=== PATIENT | female | born 1980 | race Caucasian/White ===

== ENCOUNTER 2022-02-01 09:20 | Emergency (ER) | payer OTHER, MEDICAID, SELFPAY ==
[2022-02-01 09:24] VITALS: BP 142/87; PULSE 100; RESP 18; TEMP 36.6; O2SAT 99; BMI 22.8
[2022-02-01 10:02] LABS: Add Manual Diff / Slide Review NO; Basophils Absolute Auto 0 /uL (0-100); Basophils Percent Auto 0.8 % (0-2); Eosinophils Absolute Auto 100 /uL (0-450); Hematocrit 42.5 % (36-46); Hemoglobin 15.2 g/dL (12.0-16.0); Lymphocytes Absolute Auto 1900 /uL (1100-4500); Lymphocytes Percent Auto 43.5 % (25-40); Mean Corpuscular HGB Conc 35.7 % (30-36); Mean Corpuscular Hemoglobin 36.1 PG (26-34); Mean Corpuscular Volume 101.3 fL (80-100); Monocytes Absolute Auto 300 /uL (0-900); Monocytes Percent Auto 6.5 % (3-14); Neutrophils Absolute Auto 2100 /uL (1500-7000); Neutrophils Percent Auto 47.2 % (50-75); Platelet Count 255 X10^3/uL (150-400); Red Cell Distribution Width 12.5 % (11.6-14.8); White Blood Cell Count 4.4 X10^3/uL (4.5-11.0)
[2022-02-01 10:15] LABS: Alanine Aminotransferase 94 IU/L (<35); Albumin Globulin Ratio 1.3 (1.0-2.8); Alkaline Phosphatase 104 U/L (38-126); Aspartate Aminotransferase 173 IU/L (14-36); BUN Creatinine Ratio 10.4 (6-22); Bilirubin Total 0.8 mg/dL (0.2-1.3); Blood Urea Nitrogen 8 mg/dL (7-17); Calcium 9.1 mg/dL (8.4-10.2); Carbon Dioxide 24 mmol/L (22-32); Chloride 105 mmol/L (98-107); Estimated Glomerular Filt Rate > 60 mL/min (>60); Globulin 3.8 g/dL (1.7-4.1); Glucose 90 mg/dL (70-100); HEMOLYSIS < 15 (0-50); Potassium 3.9 mmol/L (3.4-5.1); Sodium 142 mmol/L (137-145); Total Protein 8.8 g/dL (6.3-8.2)
[2022-02-01 10:23] LABS: Acetaminophen < 10 ug/mL (10-30); Ethanol (ETOH) 161 mg/dL; Salicylate < 1.0 mg/dL (<20)
--- NOTE | 2022-02-01 10:23 | ED.PSYCH ---
HPI - Psych General Chief Complaint: Psychiatric Symptoms Stated Complaint: SI Time Seen by Provider: 02/01/22 09:52 Source: patient Mode of arrival: Ambulatory History of Present Illness HPI Narrative: Patient is a 41-year-old female. Is a self-described alcoholic. Drinks every day all day long and has been doing this for very long time. Has never tried to quit. She also has been taking medications such as Adderall on benzodiazepines and other medicines that are not prescribed to her. She states she takes these to ?maintain ?she states she has to take them in order to stay awake during the day and also to go to sleep at night. She is also having thoughts of suicide. She has tried to hurt herself in the past. She has tried overdose on medicine and she also states she has tried to hang herself in the past but obviously nothing has been successful. She states that she is here voluntarily. She is here with her mom. She states that she ?needs a change ?she did not give a specific reason as to what made her think this but she is the 1 the contacted her mom to bring her in. Related Data Allergies Allergy/AdvReac Type Severity Reaction Status Date / Time No Known Drug Allergies Allergy Verified 02/01/22 09:24 Review of Systems Constitutional Constitutional: Denies fever(s) and Denies headache(s) ENT Ears, Nose, Mouth, and Throat: Denies headache(s) Cardiovascular Cardiovascular: Denies chest pain and Denies dyspnea Respiratory Respiratory: Denies dyspnea Gastrointestinal Gastrointestinal: Denies abdominal pain and Reports nausea Genitourinary Genitourinary: Denies dysuria Integumentary/Breasts Skin/Breast: Reports system reviewed and no additional complaints, except as documented Neurologic Neurologic: Reports behavioral changes and Denies headache(s) Psychiatric Psychiatric: Reports behavioral changes, Reports depression and Reports hopelessness Hematologic/Lymphatic On Anticoagulants: No Patient History Medical History Alcohol abuse Social History Smoking Status: Current every day smoker Smoking Status: Current every day smoker alcohol intake frequency: 3 or more drinks per day Alcohol type: hard liquor Substance Use Type: marijuana, crack/cocaine, sedatives and prescription drug Exam Initial Vital Signs Initial Vital Signs: Vital Signs Temperature 97.8 F 02/01/22 09:24 Pulse Rate 100 H 02/01/22 09:24 Respiratory Rate 18 02/01/22 09:24 Blood Pressure 142/87 H 02/01/22 09:24 Pulse Oximetry 99 02/01/22 09:24 HENMT Head: normal to inspection and normocephalic Resp Effort & Inspection: normal respiratory effort Auscultation: clear to auscultation bilaterally Cardio Rate: regular rate Rhythm: regular rhythm GI Inspection: normal to inspection Palpation: soft, No firm and No tender Skin General: no rashes or lesions noted Neuro General: patient alert, patient awake, patient oriented x3 and moves all extremities Cognition: normal cognition Speech: speech normal Gait: normal gait Extrem General: normal to inspection Psych Other: Flat affect, sad, does endorse suicidal ideation Course Orders Ordered: ED Orders 02/01/22 09:39 Consult to CUSTOMER ASSISTANCE REPRESENTATIVE - [employer] Stat 02/01/22 09:50 Acetaminophen Stat Complete Blood Count AUTO DIFF Stat Comprehensive Metabolic Panel Stat Ethanol (ETOH) Stat Free T4, Direct Thyroxine Stat Salicylate Stat Thyroid Stimulating Hormone Stat 02/01/22 10:20 COVID19 -Nasal RAPID/Pre-Proc Stat 02/01/22 10:27 EKG-12 Lead Stat 02/01/22 11:04 Test Urine Stat Urinalysis and Microscopic Stat Urine Culture Stat Urine Drug Screen, Rapid Stat 02/01/22 13:00 ETOH [Ethanol (ETOH)] Stat Discontinued Medications Acetaminophen (Acetaminophen 325 Mg Tablet) 650 mg PO NOW ONE Stop: 02/01/22 13:09 Last Admin: 02/01/22 13:13 Dose: 650 mg Documented by: OUMAR Nicotine (Nicotine 21 Mg Patch) 21 mg TOP NOW ONE Stop: 02/01/22 14:36 Last Admin: 02/01/22 14:41 Dose: 21 mg Documented by: VENKATESH Ondansetron HCl (Ondansetron 4 Mg Odt) 4 mg SL NOW ONE Stop: 02/01/22 15:46 Last Admin: 02/01/22 15:53 Dose: 4 mg Documented by: OUMAR Phenobarbital (Phenobarbital 65 Mg/Ml Vial) 260 mg IV NOW ONE Stop: 02/01/22 16:52 Last Admin: 02/01/22 17:03 Dose: 260 mg Documented by: JULIANO Vital Signs Vital signs: Vital Signs - 8 hr 02/01/22 16:45 Temperature 97.1 F L Pulse Rate 96 H Respiratory Rate 16 Blood Pressure 134/89 Pulse Oximetry 98 MDM - Psych Lab Data Result diagrams: 02/01/22 09:50 02/01/22 09:50 Labs: Lab Results 02/01/22 02/01/22 02/01/22 Range/Units 09:50 09:50 09:50 WBC 4.4 L (4.5-11.0) X10^3/uL RBC 4.20 (4.0-5.2) X10^6/uL Hgb 15.2 (12.0-16.0) g/dL Hct 42.5 (36-46) % MCV 101.3 H (80-100) fL MCH 36.1 H (26-34) PG MCHC 35.7 (30-36) % RDW 12.5 (11.6-14.8) % Plt Count 255 (150-400) X10^3/uL Neut % (Auto) 47.2 L (50-75) % Lymph % (Auto) 43.5 H (25-40) % [place] % (Auto) 6.5 (3-14) % Eos % (Auto) 2.0 (2-4) % Baso % (Auto) 0.8 (0-2) % Neut # (Auto) 2100 (7211-3696) /uL Lymph # (Auto) 1900 (6961-7976) /uL [place] # (Auto) 300 (0-900) /uL Eos # (Auto) 100 (0-450) /uL Baso # (Auto) 0 (0-100) /uL Sodium 142 (137-145) mmol/L Potassium 3.9 (3.4-5.1) mmol/L Chloride 105 (98-107) mmol/L Carbon Dioxide 24 (22-32) mmol/L BUN 8 (7-17) mg/dL Creatinine 0.77 (0.52-1.04) mg/dL Estimated GFR > 60 (>60) mL/min BUN/Creatinine Ratio 10.4 (6-22) Glucose 90 (70-100) mg/dL Calcium 9.1 (8.4-10.2) mg/dL Total Bilirubin 0.8 (0.2-1.3) mg/dL AST 173 H (14-36) IU/L ALT 94 H (<35) IU/L Alkaline Phosphatase 104 (38-126) U/L Total Protein 8.8 H (6.3-8.2) g/dL Albumin 5.0 (3.5-5.0) g/dL Globulin 3.8 (1.7-4.1) g/dL Albumin/Globulin Ratio 1.3 (1.0-2.8) TSH 3.78 (0.47-4.68) uIU/mL Free T4 1.05 (0.78-2.19) ng/dL Urine Color Urine Appearance Urine pH (4.5-8.0) Ur Specific [place] (1.000-1.035) Urine Protein (Negative) Urine Glucose (UA) (Negative) g/dL Urine Ketones (NEGATIVE) Urine Occult Blood (Negative) Urine Nitrate (Negative) Urine Bilirubin (NEGATIVE) Urine Urobilinogen (0.2) E.U./dL Ur Leukocyte Esterase (NEGATIVE) Urine RBC (0-5/HPF) Urine WBC (0-5/HPF) Ur Squamous Epith Cells (0-5/HPF) Urine Bacteria (None) Ur Culture Indicated? Urine Test (Negative) Salicylates < 1.0 (<20) mg/dL U Opiates 300ng/mL cut (Negative) Ur Oxycodone Screen (Negative) Urine Methadone Screen (Negative) Acetaminophen < 10 (10-30) ug/mL Ur Barbiturates Screen (Negative) U Tricyclic Antidepress (Negative) Ur Phencyclidine Scrn (Negative) Ur Amphetamines Screen (Negative) U Methamphetamines Scrn (Negative) Ur MDMA Scrn (Ecstasy) (Negative) U Benzodiazepines Scrn (Negative) Urine Cocaine Screen (Negative) U Marijuana (THC) Screen (Negative) Ethyl Alcohol 161 H ( - 10) mg/dL SARS-CoV-2 (PCR) (Negative) 02/01/22 02/01/22 02/01/22 Range/Units 10:20 11:04 11:04 WBC (4.5-11.0) X10^3/uL RBC (4.0-5.2) X10^6/uL Hgb (12.0-16.0) g/dL Hct (36-46) % MCV (80-100) fL MCH (26-34) PG MCHC (30-36) % RDW (11.6-14.8) % Plt Count (150-400) X10^3/uL Neut % (Auto) (50-75) % Lymph % (Auto) (25-40) % [place] % (Auto) (3-14) % Eos % (Auto) (2-4) % Baso % (Auto) (0-2) % Neut # (Auto) (7628-7795) /uL Lymph # (Auto) (4089-9422) /uL [place] # (Auto) (0-900) /uL Eos # (Auto) (0-450) /uL Baso # (Auto) (0-100) /uL Sodium (137-145) mmol/L Potassium (3.4-5.1) mmol/L Chloride (98-107) mmol/L Carbon Dioxide (22-32) mmol/L BUN (7-17) mg/dL Creatinine (0.52-1.04) mg/dL Estimated GFR (>60) mL/min BUN/Creatinine Ratio (6-22) Glucose (70-100) mg/dL Calcium (8.4-10.2) mg/dL Total Bilirubin (0.2-1.3) mg/dL AST (14-36) IU/L ALT (<35) IU/L Alkaline Phosphatase (38-126) U/L Total Protein (6.3-8.2) g/dL Albumin (3.5-5.0) g/dL Globulin (1.7-4.1) g/dL Albumin/Globulin Ratio (1.0-2.8) TSH (0.47-4.68) uIU/mL Free T4 (0.78-2.19) ng/dL Urine Color Yellow Urine Appearance Clear Urine pH 5.5 (4.5-8.0) Ur Specific [place] 1.010 (1.000-1.035) Urine Protein Negative (Negative) Urine Glucose (UA) Negative (Negative) g/dL Urine Ketones Negative (NEGATIVE) Urine Occult Blood Trace-lysed (Negative) Urine Nitrate Negative (Negative) Urine Bilirubin Negative (NEGATIVE) Urine Urobilinogen 0.2 (0.2) E.U./dL Ur Leukocyte Esterase Negative (NEGATIVE) Urine RBC None seen (0-5/HPF) Urine WBC 0-1/hpf (0-5/HPF) Ur Squamous Epith Cells 1-5 /hpf (0-5/HPF) Urine Bacteria Moderate (10-30) H (None) Ur Culture Indicated? Specimen cultured Urine Test (Negative) Salicylates (<20) mg/dL U Opiates 300ng/mL cut Negative (Negative) Ur Oxycodone Screen Negative (Negative) Urine Methadone Screen Negative (Negative) Acetaminophen (10-30) ug/mL Ur Barbiturates Screen Negative (Negative) U Tricyclic Antidepress Negative (Negative) Ur Phencyclidine Scrn Negative (Negative) Ur Amphetamines Screen Positive H (Negative) U Methamphetamines Scrn Negative (Negative) Ur MDMA Scrn (Ecstasy) Negative (Negative) U Benzodiazepines Scrn Positive H (Negative) Urine Cocaine Screen Negative (Negative) U Marijuana (THC) Screen Positive H (Negative) Ethyl Alcohol ( - 10) mg/dL SARS-CoV-2 (PCR) Negative (Negative) 02/01/22 02/01/22 Range/Units 11:04 13:00 WBC (4.5-11.0) X10^3/uL RBC (4.0-5.2) X10^6/uL Hgb (12.0-16.0) g/dL Hct (36-46) % MCV (80-100) fL MCH (26-34) PG MCHC (30-36) % RDW (11.6-14.8) % Plt Count (150-400) X10^3/uL Neut % (Auto) (50-75) % Lymph % (Auto) (25-40) % [place] % (Auto) (3-14) % Eos % (Auto) (2-4) % Baso % (Auto) (0-2) % Neut # (Auto) (4383-1348) /uL Lymph # (Auto) (1437-3543) /uL [place] # (Auto) (0-900) /uL Eos # (Auto) (0-450) /uL Baso # (Auto) (0-100) /uL Sodium (137-145) mmol/L Potassium (3.4-5.1) mmol/L Chloride (98-107) mmol/L Carbon Dioxide (22-32) mmol/L BUN (7-17) mg/dL Creatinine (0.52-1.04) mg/dL Estimated GFR (>60) mL/min BUN/Creatinine Ratio (6-22) Glucose (70-100) mg/dL Calcium (8.4-10.2) mg/dL Total Bilirubin (0.2-1.3) mg/dL AST (14-36) IU/L ALT (<35) IU/L Alkaline Phosphatase (38-126) U/L Total Protein (6.3-8.2) g/dL Albumin (3.5-5.0) g/dL Globulin (1.7-4.1) g/dL Albumin/Globulin Ratio (1.0-2.8) TSH (0.47-4.68) uIU/mL Free T4 (0.78-2.19) ng/dL Urine Color Urine Appearance Urine pH (4.5-8.0) Ur Specific [place] (1.000-1.035) Urine Protein (Negative) Urine Glucose (UA) (Negative) g/dL Urine Ketones (NEGATIVE) Urine Occult Blood (Negative) Urine Nitrate (Negative) Urine Bilirubin (NEGATIVE) Urine Urobilinogen (0.2) E.U./dL Ur Leukocyte Esterase (NEGATIVE) Urine RBC (0-5/HPF) Urine WBC (0-5/HPF) Ur Squamous Epith Cells (0-5/HPF) Urine Bacteria (None) Ur Culture Indicated? Urine Test Negative (Negative) Salicylates (<20) mg/dL U Opiates 300ng/mL cut (Negative) Ur Oxycodone Screen (Negative) Urine Methadone Screen (Negative) Acetaminophen (10-30) ug/mL Ur Barbiturates Screen (Negative) U Tricyclic Antidepress (Negative) Ur Phencyclidine Scrn (Negative) Ur Amphetamines Screen (Negative) U Methamphetamines Scrn (Negative) Ur MDMA Scrn (Ecstasy) (Negative) U Benzodiazepines Scrn (Negative) Urine Cocaine Screen (Negative) U Marijuana (THC) Screen (Negative) Ethyl Alcohol 82 H ( - 10) mg/dL SARS-CoV-2 (PCR) (Negative) ECG Data Attestation: I personally reviewed and interpreted this ECG as follows: Interpretation: Sinus rhythm Ventricular rate is 77 Normal QRS Normal QTC No ST T wave changes MDM Narrative Medical decision making narrative: Patient is medically cleared. Labs reviewed. Patient is calm and stable although she did start to have a headache and some nausea and shaking. Was given Tylenol and also phenobarbital for what appears to be alcohol withdrawal with a CIWA score of 13. Was seen by social work. There either no beds available or patient was not a candidate did facilities given her dual diagnosis to include mental health issues and alcohol on also drug use. Patient is tolerating oral intake. Is in the room with her mother. Plan will be is to have the patient stay in the emergency department overnight for her safety. She would prefer to stay in the ER and will re-evaluate tomorrow about potential placement for patient. Care turned over to Dr. Lau to continue to observe overnight.
[2022-02-01 10:46] LABS: COVID19 -Nasal RAPID Negative (Negative)
[2022-02-01 10:50] LABS: Free T4, Direct Thyroxine 1.05 ng/dL (0.78-2.19)
[2022-02-01 11:04] LABS: Thyroid Stimulating Hormone 3.78 uIU/mL (0.47-4.68)
[2022-02-01 11:15] LABS: UR Morphine/Opiate cutoff 300 Negative (Negative); Ur Creatinine Normal (Normal); Ur Specific Gravity Normal (Normal); Urine Amphetamines Positive (Negative); Urine Barbiturates Negative (Negative); Urine Benzodiazepines Positive (Negative); Urine Cocaine Negative (Negative); Urine MDMA Negative (Negative); Urine Methadone Negative (Negative); Urine Methamphetamines Negative (Negative); Urine Oxycodone Negative (Negative); Urine Phencyclidine Negative (Negative); Urine Tetrahydrocannabinol Positive (Negative); Urine Tricyclic Antidepressant Negative (Negative); Urine pH Normal (Normal)
--- NOTE | 2022-02-01 12:28 | PC.NURSE ---
I introduced myself to the patient while her support person went to the bathroom. Patient is calm and when asking to see if she would like her table cleared off or brought anything to her, she said no but i could bring her vodka.
[2022-02-01] MEDS: ACETAMINOPHEN 325 MG TABLET 650 MG PO ×2 (13:13→21:50)
[2022-02-01 13:15] LABS: Appearance Urine UA CLEAR; Bilirubin Urine UA NEGATIVE (NEGATIVE); Color Urine UA YELLOW; Glucose Urine UA NEGATIVE (Negative); Ketones Urine UA NEGATIVE (NEGATIVE); Leukocyte Esterase Urine UA NEGATIVE (NEGATIVE); Nitrite Urine UA NEGATIVE (Negative); Occult Blood Urine UA TRACE-LYSED (Negative); Protein Urine UA NEGATIVE (Negative); Urobilinogen Urine UA 0.2 E.U./dL (0.2)
[2022-02-01 13:17] LABS: Pregnancy Test Urine Negative (Negative); pH Urine UA 5.5 (4.5-8.0)
[2022-02-01 13:22] LABS: Ethanol (ETOH) 82 mg/dL
[2022-02-01 13:23] LABS: RBC Urine None Seen (0-5/HPF); Squamous Epithelial Cell Urine 1-5 /HPF (0-5/HPF); WBC Urine 0-1/HPF (0-5/HPF)
[2022-02-01 13:24] LABS: Bacteria Urine Moderate (10-30); Culture Indicated Urine Specimen Cultured
[2022-02-01] MEDS: NICOTINE 21 MG PATCH TOP (14:41)
--- NOTE | 2022-02-01 15:22 | CM.SWNOTE ---
Patient is a 41 yo female who was admitted to [facility] ED on 02/01/22 for SI. Pt has no insurance and is Self Pay and given [facility] and no PCP. EMR was reviewed. Per ED MD, FUR LINER Consult placed due to pt's ETOH, polysubstance, and SI. 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 Pt's UDS was positive for THC, amphetamines, Benzos and BAL was 161 at admission. Pt admits to a hx of legal involvement and went to [facility] for a time but states it was about 20 years ago and denies any current legal involvement. Pt denies any formal hx of MH tx or ROHIT tx and gained sobriety while in [facility] but since then has not actively sought MH or ROHIT supports or treatments. Pt admits to daily excessive drinking to self medicate and then states she is stuck in a cycle of not sleeping and therefore medicating with valium or melatonin and alcohol and then she is so tired during the day that she takes uppers to stay awake. 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 Pt lives at home with her mother but they are on opposite schedules and has two siblings and one is the most supportive. Pt also endorses that she has a son but does not sound like he lives with pt. Pt confirms a hx of suicidal ideation with two suicide attempts, once with intentional overdose and once with attempted hanging but states she never told anyone or sought tx or was hospitalized after those two attempts which were at least a few years ago. Pt confirms ongoing suicidal ideation but no plan and states she has had some visual disturbances and sort of hearing voices but feels this is from her lack of sleep. Pt denies any formal MH dx but mother states at one time she was given dx of Bipolar but pt and mother do not feel this is necessarily accurate dx. Pt has family hx of siblings having ADD and ADHD and mother states she herself was just diagnosed with ADD and manic depressive. Pt has a degree in Psychology but mother states pt has not taken care of herself and is very smart but puts everyone else ahead of herself. Pt's goal is to have a Psychiatrist to accurately provide a diagnosis, begin appropriate med management that could help her sleep and get relief and have more energy during the day. SW discussed possible options of Inpt MH tx vs Crisis stabilization at triage. Pt has significant fear from her time in [facility] of feeling locked up with no escape and currently declines Inpt MH tx but thinks she would be agreeable with Crisis Stabilization at Triage. Mother states she is not working right now and she is currently helping pt complete the [employer] application for medical coverage and states she would be happy to provide transport to pt to [place] or any facility if needed. SW called [facility] in [place] and they are not accepting admits today but would do screening tomorrow for acceptance on Thursday. SW called [facility] but they are full and pt needing more dual dx tx. SW called [facility] and they have female bed and SW provided pt information and faxed clinicals to review and provided contact number to ED radiology orderly and ED RN as well. NIYAH called [facility] and confirmed they received the fax and apologized as they only have one RN reviewing pts right now and SW provided ED contact number as almost end of FUR LINER shift and updated ED. Plan: Follow for [facility] review to confirm if they can accept and pt's mother willing to provide transport if accepted. CRYSTAL Thurman
[2022-02-01] MEDS: ONDANSETRON 4 MG ODT SL (15:53)
[2022-02-01 16:45] VITALS: BP 134/89; PULSE 96; RESP 16; TEMP 36.2; O2SAT 98
[2022-02-01] MEDS: PHENobarbital 65 MG/ML VIAL 260 MG IV (17:03)
--- NOTE | 2022-02-01 17:19 | PC.NURSE ---
Pt denies wanting to hurt herself at this time. Having headaches, nausea/vomiting. Provider aware. Phenobarb given as ordered.
--- NOTE | 2022-02-01 17:47 | PC.NURSE ---
Mom went home to take care of herself and will be back in a little bit to stay the night. Patient wanted mom to remove a red clutch and bring that home. that clutch has money with credit cards instead of it. the other belongings are still in the patient locked cabinet.
--- NOTE | 2022-02-01 19:42 | PC.NURSE ---
Pt changed to Medium risk per Dr Mehta
[2022-02-01] MEDS: SODIUM CHLORIDE 0.9% 1,000 ML 1000 ML IV (21:50)
[2022-02-01] MEDS: ONDANSETRON 4 MG/2 ML INJ IV (22:00)
[2022-02-02 05:12] VITALS: BP 128/77; PULSE 82; RESP 18; O2SAT 97
[2022-02-02] MEDS: NICOTINE 7 MG PATCH TOP (05:20)
--- NOTE | 2022-02-02 05:25 | PC.NURSE ---
Follow-up up with [facility] crisis triage. states patient had been declined for symptoms of withdraw. Pt declining and symptoms at this time. restarted process with [facility] crisis.
--- NOTE | 2022-02-02 06:39 | ED.PSYCH ---
HPI - Psych General Chief Complaint: Psychiatric Symptoms Stated Complaint: SI Time Seen by Provider: 02/01/22 09:52 Source: patient Mode of arrival: Ambulatory Related Data Allergies Allergy/AdvReac Type Severity Reaction Status Date / Time No Known Drug Allergies Allergy Verified 02/01/22 09:24 Review of Systems Constitutional Constitutional: Denies headache(s) ENT Ears, Nose, Mouth, and Throat: Denies headache(s) Neurologic Neurologic: Reports behavioral changes and Denies headache(s) Psychiatric Psychiatric: Reports behavioral changes Patient History Medical History Alcohol abuse Social History Smoking Status: Current every day smoker Smoking Status: Current every day smoker alcohol intake frequency: 3 or more drinks per day Alcohol type: hard liquor Substance Use Type: marijuana, crack/cocaine, sedatives and prescription drug Exam Initial Vital Signs Initial Vital Signs: Vital Signs Temperature 97.8 F 02/01/22 09:24 Pulse Rate 100 H 02/01/22 09:24 Respiratory Rate 18 02/01/22 09:24 Blood Pressure 142/87 H 02/01/22 09:24 Pulse Oximetry 99 02/01/22 09:24 Course Orders Ordered: Discontinued Medications Acetaminophen (Acetaminophen 325 Mg Tablet) 650 mg PO NOW ONE Stop: 02/01/22 13:09 Last Admin: 02/01/22 13:13 Dose: 650 mg Documented by: OUMAR Acetaminophen (Acetaminophen 325 Mg Tablet) 650 mg PO NOW ONE Stop: 02/01/22 21:43 Last Admin: 02/01/22 21:50 Dose: 650 mg Documented by: JULIANO Sodium Chloride (Normal Saline 0.9%) 1,000 mls @ 1,000 mls/hr IV BOLUS ONE Stop: 02/01/22 22:40 Last Infusion: 02/02/22 00:26 Dose: 0 mls/hr Documented by: Admin: 02/01/22 21:50 Dose: 1,000 mls/hr Documented by: JULIANO Lorazepam (Lorazepam 2 Mg/Ml Inj) 2 mg IV NOW ONE Stop: 02/02/22 07:36 Last Admin: 02/02/22 08:02 Dose: 2 mg Documented by: OUSMANE Nicotine (Nicotine 21 Mg Patch) 21 mg TOP NOW ONE Stop: 02/01/22 14:36 Last Admin: 02/01/22 14:41 Dose: 21 mg Documented by: VENKATESH Nicotine (Nicotine 7 Mg Patch) 7 mg TOP NOW ONE Stop: 02/02/22 05:05 Last Admin: 02/02/22 05:20 Dose: 7 mg Documented by: RAMU Ondansetron HCl (Ondansetron 4 Mg Odt) 4 mg SL NOW ONE Stop: 02/01/22 15:46 Last Admin: 02/01/22 15:53 Dose: 4 mg Documented by: OUMAR Ondansetron HCl (Ondansetron 4 Mg/2 Ml Inj) 4 mg IV NOW ONE Stop: 02/01/22 21:59 Last Admin: 02/01/22 22:00 Dose: 4 mg Documented by: JULIANO Ondansetron HCl (Ondansetron 4 Mg/2 Ml Inj) 4 mg IV NOW ONE Stop: 02/02/22 06:34 Last Admin: 02/02/22 07:28 Dose: 4 mg Documented by: OUSMANE Pantoprazole Sodium (Pantoprazole 40 Mg Vial) 40 mg IV NOW ONE Stop: 02/02/22 06:34 Last Admin: 02/02/22 06:42 Dose: 40 mg Documented by: RAMU Phenobarbital (Phenobarbital 65 Mg/Ml Vial) 260 mg IV NOW ONE Stop: 02/01/22 16:52 Last Admin: 02/01/22 17:03 Dose: 260 mg Documented by: JULIANO Phenobarbital (Phenobarbital 65 Mg/Ml Vial) 130 mg IV NOW ONE Stop: 02/02/22 07:36 Last Admin: 02/02/22 08:02 Dose: 130 mg Documented by: OUSMANE Vital Signs Vital signs: Vital Signs - 8 hr 02/02/22 16:16 Pulse Rate 86 Respiratory Rate 16 Blood Pressure 120/81 Pulse Oximetry 97 MDM - Psych Lab Data Result diagrams: 02/01/22 09:50 02/01/22 09:50 Labs: Lab Results 02/01/22 02/01/22 02/01/22 Range/Units 09:50 09:50 09:50 WBC 4.4 L (4.5-11.0) X10^3/uL RBC 4.20 (4.0-5.2) X10^6/uL Hgb 15.2 (12.0-16.0) g/dL Hct 42.5 (36-46) % MCV 101.3 H (80-100) fL MCH 36.1 H (26-34) PG MCHC 35.7 (30-36) % RDW 12.5 (11.6-14.8) % Plt Count 255 (150-400) X10^3/uL Neut % (Auto) 47.2 L (50-75) % Lymph % (Auto) 43.5 H (25-40) % Giles % (Auto) 6.5 (3-14) % Eos % (Auto) 2.0 (2-4) % Baso % (Auto) 0.8 (0-2) % Neut # (Auto) 2100 (2158-6350) /uL Lymph # (Auto) 1900 (8922-0643) /uL Giles # (Auto) 300 (0-900) /uL Eos # (Auto) 100 (0-450) /uL Baso # (Auto) 0 (0-100) /uL Sodium 142 (137-145) mmol/L Potassium 3.9 (3.4-5.1) mmol/L Chloride 105 (98-107) mmol/L Carbon Dioxide 24 (22-32) mmol/L BUN 8 (7-17) mg/dL Creatinine 0.77 (0.52-1.04) mg/dL Estimated GFR > 60 (>60) mL/min BUN/Creatinine Ratio 10.4 (6-22) Glucose 90 (70-100) mg/dL Calcium 9.1 (8.4-10.2) mg/dL Total Bilirubin 0.8 (0.2-1.3) mg/dL AST 173 H (14-36) IU/L ALT 94 H (<35) IU/L Alkaline Phosphatase 104 (38-126) U/L Total Protein 8.8 H (6.3-8.2) g/dL Albumin 5.0 (3.5-5.0) g/dL Globulin 3.8 (1.7-4.1) g/dL Albumin/Globulin Ratio 1.3 (1.0-2.8) TSH 3.78 (0.47-4.68) uIU/mL Free T4 1.05 (0.78-2.19) ng/dL Urine Color Urine Appearance Urine pH (4.5-8.0) Ur Specific [place] (1.000-1.035) Urine Protein (Negative) Urine Glucose (UA) (Negative) g/dL Urine Ketones (NEGATIVE) Urine Occult Blood (Negative) Urine Nitrate (Negative) Urine Bilirubin (NEGATIVE) Urine Urobilinogen (0.2) E.U./dL Ur Leukocyte Esterase (NEGATIVE) Urine RBC (0-5/HPF) Urine WBC (0-5/HPF) Ur Squamous Epith Cells (0-5/HPF) Urine Bacteria (None) Ur Culture Indicated? Urine Test (Negative) Salicylates < 1.0 (<20) mg/dL U Opiates 300ng/mL cut (Negative) Ur Oxycodone Screen (Negative) Urine Methadone Screen (Negative) Acetaminophen < 10 (10-30) ug/mL Ur Barbiturates Screen (Negative) U Tricyclic Antidepress (Negative) Ur Phencyclidine Scrn (Negative) Ur Amphetamines Screen (Negative) U Methamphetamines Scrn (Negative) Ur MDMA Scrn (Ecstasy) (Negative) U Benzodiazepines Scrn (Negative) Urine Cocaine Screen (Negative) U Marijuana (THC) Screen (Negative) Ethyl Alcohol 161 H ( - 10) mg/dL SARS-CoV-2 (PCR) (Negative) 02/01/22 02/01/22 02/01/22 Range/Units 10:20 11:04 11:04 WBC (4.5-11.0) X10^3/uL RBC (4.0-5.2) X10^6/uL Hgb (12.0-16.0) g/dL Hct (36-46) % MCV (80-100) fL MCH (26-34) PG MCHC (30-36) % RDW (11.6-14.8) % Plt Count (150-400) X10^3/uL Neut % (Auto) (50-75) % Lymph % (Auto) (25-40) % Giles % (Auto) (3-14) % Eos % (Auto) (2-4) % Baso % (Auto) (0-2) % Neut # (Auto) (0618-4294) /uL Lymph # (Auto) (3083-8434) /uL Giles # (Auto) (0-900) /uL Eos # (Auto) (0-450) /uL Baso # (Auto) (0-100) /uL Sodium (137-145) mmol/L Potassium (3.4-5.1) mmol/L Chloride (98-107) mmol/L Carbon Dioxide (22-32) mmol/L BUN (7-17) mg/dL Creatinine (0.52-1.04) mg/dL Estimated GFR (>60) mL/min BUN/Creatinine Ratio (6-22) Glucose (70-100) mg/dL Calcium (8.4-10.2) mg/dL Total Bilirubin (0.2-1.3) mg/dL AST (14-36) IU/L ALT (<35) IU/L Alkaline Phosphatase (38-126) U/L Total Protein (6.3-8.2) g/dL Albumin (3.5-5.0) g/dL Globulin (1.7-4.1) g/dL Albumin/Globulin Ratio (1.0-2.8) TSH (0.47-4.68) uIU/mL Free T4 (0.78-2.19) ng/dL Urine Color Yellow Urine Appearance Clear Urine pH 5.5 (4.5-8.0) Ur Specific [place] 1.010 (1.000-1.035) Urine Protein Negative (Negative) Urine Glucose (UA) Negative (Negative) g/dL Urine Ketones Negative (NEGATIVE) Urine Occult Blood Trace-lysed (Negative) Urine Nitrate Negative (Negative) Urine Bilirubin Negative (NEGATIVE) Urine Urobilinogen 0.2 (0.2) E.U./dL Ur Leukocyte Esterase Negative (NEGATIVE) Urine RBC None seen (0-5/HPF) Urine WBC 0-1/hpf (0-5/HPF) Ur Squamous Epith Cells 1-5 /hpf (0-5/HPF) Urine Bacteria Moderate (10-30) H (None) Ur Culture Indicated? Specimen cultured Urine Test (Negative) Salicylates (<20) mg/dL U Opiates 300ng/mL cut Negative (Negative) Ur Oxycodone Screen Negative (Negative) Urine Methadone Screen Negative (Negative) Acetaminophen (10-30) ug/mL Ur Barbiturates Screen Negative (Negative) U Tricyclic Antidepress Negative (Negative) Ur Phencyclidine Scrn Negative (Negative) Ur Amphetamines Screen Positive H (Negative) U Methamphetamines Scrn Negative (Negative) Ur MDMA Scrn (Ecstasy) Negative (Negative) U Benzodiazepines Scrn Positive H (Negative) Urine Cocaine Screen Negative (Negative) U Marijuana (THC) Screen Positive H (Negative) Ethyl Alcohol ( - 10) mg/dL SARS-CoV-2 (PCR) Negative (Negative) 02/01/22 02/01/22 Range/Units 11:04 13:00 WBC (4.5-11.0) X10^3/uL RBC (4.0-5.2) X10^6/uL Hgb (12.0-16.0) g/dL Hct (36-46) % MCV (80-100) fL MCH (26-34) PG MCHC (30-36) % RDW (11.6-14.8) % Plt Count (150-400) X10^3/uL Neut % (Auto) (50-75) % Lymph % (Auto) (25-40) % Giles % (Auto) (3-14) % Eos % (Auto) (2-4) % Baso % (Auto) (0-2) % Neut # (Auto) (2898-6203) /uL Lymph # (Auto) (0104-3761) /uL Giles # (Auto) (0-900) /uL Eos # (Auto) (0-450) /uL Baso # (Auto) (0-100) /uL Sodium (137-145) mmol/L Potassium (3.4-5.1) mmol/L Chloride (98-107) mmol/L Carbon Dioxide (22-32) mmol/L BUN (7-17) mg/dL Creatinine (0.52-1.04) mg/dL Estimated GFR (>60) mL/min BUN/Creatinine Ratio (6-22) Glucose (70-100) mg/dL Calcium (8.4-10.2) mg/dL Total Bilirubin (0.2-1.3) mg/dL AST (14-36) IU/L ALT (<35) IU/L Alkaline Phosphatase (38-126) U/L Total Protein (6.3-8.2) g/dL Albumin (3.5-5.0) g/dL Globulin (1.7-4.1) g/dL Albumin/Globulin Ratio (1.0-2.8) TSH (0.47-4.68) uIU/mL Free T4 (0.78-2.19) ng/dL Urine Color Urine Appearance Urine pH (4.5-8.0) Ur Specific [place] (1.000-1.035) Urine Protein (Negative) Urine Glucose (UA) (Negative) g/dL Urine Ketones (NEGATIVE) Urine Occult Blood (Negative) Urine Nitrate (Negative) Urine Bilirubin (NEGATIVE) Urine Urobilinogen (0.2) E.U./dL Ur Leukocyte Esterase (NEGATIVE) Urine RBC (0-5/HPF) Urine WBC (0-5/HPF) Ur Squamous Epith Cells (0-5/HPF) Urine Bacteria (None) Ur Culture Indicated? Urine Test Negative (Negative) Salicylates (<20) mg/dL U Opiates 300ng/mL cut (Negative) Ur Oxycodone Screen (Negative) Urine Methadone Screen (Negative) Acetaminophen (10-30) ug/mL Ur Barbiturates Screen (Negative) U Tricyclic Antidepress (Negative) Ur Phencyclidine Scrn (Negative) Ur Amphetamines Screen (Negative) U Methamphetamines Scrn (Negative) Ur MDMA Scrn (Ecstasy) (Negative) U Benzodiazepines Scrn (Negative) Urine Cocaine Screen (Negative) U Marijuana (THC) Screen (Negative) Ethyl Alcohol 82 H ( - 10) mg/dL SARS-CoV-2 (PCR) (Negative) Discharge Plan Departure Patient Disposition: Home Clinical Impression: Alcohol abuse with withdrawal, Suicidal ideation Instructions: DI for Alcohol Use Disorder, DI for Suicidal Ideation-Adult Activity Restrictions/Additional Instructions: Go directly to with [facility] detox *You have been diagnosed with alcohol withdrawal and suicidal ideation *Continue to take medications as directed *Follow up with your primary care provider in 2-3 days or call [phone] *Return to ER if you should have with of suicide, shaking tremors or the any new, worsening or concerning symptoms
[2022-02-02] MEDS: PANTOPRAZOLE 40 MG VIAL IV (06:42)
--- NOTE | 2022-02-02 07:00 | PC.NURSE ---
talking with mother medicated for nausea, informed pt she could have some more zofran if the nausea persisted
[2022-02-02] MEDS: ONDANSETRON 4 MG/2 ML INJ IV (07:28)
[2022-02-02] MEDS: PHENobarbital 65 MG/ML VIAL 130 MG IV (08:02)
[2022-02-02] MEDS: LORazepam 2 MG/ML INJ IV (08:02)
--- NOTE | 2022-02-02 08:14 | PC.NURSE ---
[facility] called and informed that pt's CIWA scale was 11. They said they could not accept her as a pt at this time
--- NOTE | 2022-02-02 10:56 | PC.NURSE ---
sleeping well after meds given.
--- NOTE | 2022-02-02 13:19 | PC.NURSE ---
resting in bed, asleep, resp even unlabored, nad.
--- NOTE | 2022-02-02 14:07 | PC.NURSE ---
accepted at [facility]. arrival time 1700
--- NOTE | 2022-02-02 14:55 | CM.SWNOTE ---
WOOD SETTER Note: Received call from Dr. Laird this AM re: d/c planning for this patient. Reviewed colleague note which indicates that yesterday CM team made an attempt to get patient bed at [facility]. It appears that they were attempting to place her for SI. WOOD SETTER spoke [facility] this AM and they report that they do not do detox and they felt that patient needed to detox from ETOH first. Therefore, WOOD SETTER met with patient and her mother at bedside. Patient easily woken up and in agreement to call [facility] for detox bed at [phone] [phone]. Per facility they do have detox opening. WOOD SETTER left information on status board for ED team. WOOD SETTER hopeful they will be able to accept this today. Notified ED staff that facility may need to have records faxed to them. Anticipate that patient's Mother can provide her transport. In addition, emailed admit counselors that patient's Medicaid application was completed for medical insurance. Hopefully, they will be able to pickling grader from patient in room prior to d/c. As of 3:00pm WOOD SETTER reviewed ED status board indicating patient accepted at [facility]. Placed call to Dr. Laird to confirm. She reports that she is reading the same information on status board. P: [facility] today. ED staff report that they faxed needed clinical to [facility]. [employer]
[2022-02-02 16:16] VITALS: BP 120/81; PULSE 86; RESP 16; O2SAT 97
== END 2022-02-02 16:35 | disposition home or self-care (01) ==
PROVIDERS: Emergency Medicine; Emergency Provider Emergency Medicine
DX: F10.139 Alcohol abuse with withdrawal, unspecified (principal); R45.851 Suicidal ideations; R51.9 Headache, unspecified; R11.0 Nausea; Z20.822 Contact with and (suspected) exposure to COVID-19
CPT/HCPCS: 36415; 80053; 80305; 80320; 80329; 81001; 81025; 84439; 84443; 85025; 87086; 87635; 96374; 96375; 96376; 99285; C9803; C9113; G0480; J2060; J2405; J2560

== ENCOUNTER 2022-05-04 21:56 | Emergency (ER) | payer OTHER, MEDICAID, SELFPAY ==
[2022-05-04 21:59] VITALS: BP 156/73; PULSE 113; RESP 20; TEMP 36.5; O2SAT 97; BMI 23.8
--- NOTE | 2022-05-04 22:34 | ED.PSYCH ---
HPI - Psych <Rocio Waterman, DO - Last Filed: 05/06/22 00:51> General Chief Complaint: Psychiatric Symptoms Stated Complaint: SI, Looking for detox Time Seen by Provider: 05/04/22 22:33 Source: patient Mode of arrival: Ambulatory Limitations: no limitations History of Present Illness HPI Narrative: 41-year-old female with history of alcohol abuse who presents with request for detox and suicidal ideation. Patient was seen here in January and states that things are not getting better and they think they are getting worse than last time and was started on depression/bipolar medication. Patient states that she was sent to a detox unit but left quite quickly afterwards. She states that since then she is continued to drink alcohol she stopped using methamphetamines and Adderall recreationally. She is only drinking alcohol she states she drinks quite a bit of hard liquor daily and describes at least 5-6 hard liquor drinks maybe more daily along with, 2 white claws in the morning and potentially red bull. She does smoke. She denies other recreational drugs actively. She states the only time she is ever stopped drinking as when she was here in January so she is not really sure about withdrawal symptoms. She states she has been hearing voices that she isn't sure if they are her own voice or an outside voice but she did state yesterday that a bench outside her mother's house was talking to her and they had a full on conversation in argument and she finally kicked it to the side. Patient states that this has been happening for several years but has become increasingly more frequent. She is had suicidal thoughts which he strength she drinks alcohol to prevent herself from killing herself. She states that she frequently has a plan every single day. Today her plan would been to hang herself. She states tonight she woke up her mother to get assistance because she knew that she would hang herself if she did not reach out for help. She states she does not want to she does not want to kill herself but she feels like she is reaching a point where she can not stop herself. She was prescribed hydroxyzine and valproic acid and told by primary care physician they thought she was bipolar. She has not been to a psychiatrist. Related Data Home Medications Medication Instructions Recorded Confirmed hydroxyzine HCl 25 mg tablet 25 mg PO DIRECTED 05/04/22 05/04/22 valproic acid 250 mg capsule 250 mg PO BID 05/04/22 05/04/22 Allergies Allergy/AdvReac Type Severity Reaction Status Date / Time No Known Drug Allergies Allergy Verified 02/01/22 09:24 Review of Systems <Rocio Waterman DO - Last Filed: 05/06/22 00:51> Review of Systems ROS Unobtainable: All systems reviewed & are unremarkable except as noted in HPI and below Patient History <Rocio Waterman DO - Last Filed: 05/06/22 00:51> Medical History Alcohol abuse Social History Smoking Status: Current every day smoker Smoking Status: Current every day smoker alcohol intake frequency: 3 or more drinks per day Alcohol type: hard liquor Substance Use Type: marijuana, crack/cocaine, sedatives and prescription drug Exam <Rocio Waterman DO - Last Filed: 05/06/22 00:51> Narrative Exam Narrative: GENERAL: Alert and oriented x three, female in mild distress. Patient appears intoxicated. HEENT: Head normocephalic, atraumatic, EOMI, pupils reactive, face symmetric, moist mucous membranes NECK: Supple, full range of motion CARDIOVASCULAR: Regular rate and rhythm without murmurs, rubs or gallops. RESPIRATORY: Breath sounds equal bilaterally, no wheezes rales or rhonchi. ABDOMEN: Soft, nontender. Normoactive bowel sounds all 4 quadrants. No guarding or rebound, rigidity, no mass : No CVA tenderness EXTREMITIES: Normal range of motion, no clubbing or edema. Neurovascularly intact NEUROLOGICAL: Cranial nerves II through XII grossly intact. Moving all extremities SKIN: Warm, dry, no petechiae, no rashes or lesions. PSYCH: Suicidal ideation without intent but intrusive thoughts. No homicidal ideation. Patient describes auditory hallucinations and occasional visual hallucinations Initial Vital Signs Initial Vital Signs: Vital Signs Temperature 97.7 F 05/04/22 21:59 Pulse Rate 113 H 05/04/22 21:59 Respiratory Rate 20 05/04/22 21:59 Blood Pressure 156/73 H 05/04/22 21:59 Pulse Oximetry 97 05/04/22 21:59 Oxygen Delivery Method 05/04/22 21:59 <Diana Laird DO - Last Filed: 05/05/22 16:05> Initial Vital Signs Initial Vital Signs: Vital Signs Temperature 97.7 F 05/04/22 21:59 Pulse Rate 113 H 05/04/22 21:59 Respiratory Rate 20 05/04/22 21:59 Blood Pressure 156/73 H 05/04/22 21:59 Pulse Oximetry 97 05/04/22 21:59 Oxygen Delivery Method 05/04/22 21:59 Course <Rocio Waterman, - Last Filed: 05/06/22 00:51> Orders Ordered: Discontinued Medications Folic Acid (Folic Acid 1 Mg Tablet) 1 mg PO NOW ONE Stop: 05/04/22 22:41 Last Admin: 05/04/22 23:44 Dose: 1 mg Documented By: STONEY Thiamine HCl 100 mg/ Sodium (Chloride) 101 mls @ 404 mls/hr IV NOW ONE Stop: 05/04/22 22:41 Last Infusion: 05/05/22 00:00 Dose: 0 mls/hr Documented By: Admin: 05/04/22 23:23 Dose: 404 mls/hr Documented By: SCOTTIE Lorazepam (Lorazepam 0.5 Mg Tablet) 1 mg PO NOW ONE Stop: 05/04/22 23:11 Last Admin: 05/04/22 23:24 Dose: 1 mg Documented By: SCOTTIE Lorazepam (Lorazepam 0.5 Mg Tablet) 1 mg PO NOW ONE Stop: 05/05/22 10:12 Last Admin: 05/05/22 10:18 Dose: 1 mg Documented By: AISHWARYA Nicotine (Nicotine 7 Mg Patch) 7 mg TOP NOW ONE Stop: 05/04/22 23:11 Last Admin: 05/04/22 23:44 Dose: 7 mg Documented By: STONEY Phenobarbital (Phenobarbital 65 Mg/Ml Vial) 130 mg IV NOW ONE Stop: 05/05/22 05:14 Last Admin: 05/05/22 05:22 Dose: 130 mg Documented By: STONEY Valproate Sodium (Valproic Acid 250 Mg/5 Ml Udc) 250 mg PO NOW ONE Stop: 05/05/22 10:12 Last Admin: 05/05/22 10:18 Dose: 250 mg Documented By: AISHWARYA Reevaluation(s) Reevaluation #1: Patient sleeping on recheck. Sitter watching patient. Time: 01:20 Vital Signs Vital signs: Vital Signs - 8 hr 05/05/22 08:00 05/05/22 08:30 05/05/22 09:00 Pulse Rate 75 80 83 Respiratory Rate 16 16 15 Blood Pressure Pulse Oximetry Oxygen Delivery Method 05/05/22 09:30 05/05/22 10:00 05/05/22 10:14 Pulse Rate 97 H 90 92 H Respiratory Rate 23 18 20 Blood Pressure Pulse Oximetry 98 Oxygen Delivery Method 05/05/22 10:15 05/05/22 10:15 05/05/22 15:38 Pulse Rate 94 H Respiratory Rate 21 Blood Pressure 122/88 139/94 H Pulse Oximetry 98 Oxygen Delivery Method 05/05/22 15:38 Pulse Rate 92 H Respiratory Rate Blood Pressure Pulse Oximetry 99 Oxygen Delivery Method Room Air <Diana Laird DO - Last Filed: 05/05/22 16:05> Orders Ordered: Discontinued Medications Folic Acid (Folic Acid 1 Mg Tablet) 1 mg PO NOW ONE Stop: 05/04/22 22:41 Last Admin: 05/04/22 23:44 Dose: 1 mg Documented By: STONEY Thiamine HCl 100 mg/ Sodium (Chloride) 101 mls @ 404 mls/hr IV NOW ONE Stop: 05/04/22 22:41 Last Infusion: 05/05/22 00:00 Dose: 0 mls/hr Documented By: Admin: 05/04/22 23:23 Dose: 404 mls/hr Documented By: SCOTTIE Lorazepam (Lorazepam 0.5 Mg Tablet) 1 mg PO NOW ONE Stop: 05/04/22 23:11 Last Admin: 05/04/22 23:24 Dose: 1 mg Documented By: SCOTTIE Lorazepam (Lorazepam 0.5 Mg Tablet) 1 mg PO NOW ONE Stop: 05/05/22 10:12 Last Admin: 05/05/22 10:18 Dose: 1 mg Documented By: AISHWARYA Nicotine (Nicotine 7 Mg Patch) 7 mg TOP NOW ONE Stop: 05/04/22 23:11 Last Admin: 05/04/22 23:44 Dose: 7 mg Documented By: STONEY Phenobarbital (Phenobarbital 65 Mg/Ml Vial) 130 mg IV NOW ONE Stop: 05/05/22 05:14 Last Admin: 05/05/22 05:22 Dose: 130 mg Documented By: STONEY Valproate Sodium (Valproic Acid 250 Mg/5 Ml Udc) 250 mg PO NOW ONE Stop: 05/05/22 10:12 Last Admin: 05/05/22 10:18 Dose: 250 mg Documented By: AISHWARYA Vital Signs Vital signs: Vital Signs - 8 hr 05/05/22 08:00 05/05/22 08:30 05/05/22 09:00 Pulse Rate 75 80 83 Respiratory Rate 16 16 15 Blood Pressure Pulse Oximetry Oxygen Delivery Method 05/05/22 09:30 05/05/22 10:00 05/05/22 10:14 Pulse Rate 97 H 90 92 H Respiratory Rate 23 18 20 Blood Pressure Pulse Oximetry 98 Oxygen Delivery Method 05/05/22 10:15 05/05/22 10:15 05/05/22 15:38 Pulse Rate 94 H Respiratory Rate 21 Blood Pressure 122/88 139/94 H Pulse Oximetry 98 Oxygen Delivery Method 05/05/22 15:38 Pulse Rate 92 H Respiratory Rate Blood Pressure Pulse Oximetry 99 Oxygen Delivery Method Room Air MDM - Psych <Rocio Waterman, DO - Last Filed: 05/06/22 00:51> Lab Data Result diagrams: 05/04/22 22:44 05/04/22 22:44 Labs: Lab Results 05/04/22 05/04/22 05/04/22 Range/Units 22:18 22:18 22:18 WBC (4.5-11.0) X10^3/uL RBC (4.0-5.2) X10^6/uL Hgb (12.0-16.0) g/dL Hct (36-46) % MCV (80-100) fL MCH (26-34) PG MCHC (30-36) % RDW (11.6-14.8) % Plt Count (150-400) X10^3/uL Neut % (Auto) (50-75) % Lymph % (Auto) (25-40) % [place] % (Auto) (3-14) % Eos % (Auto) (2-4) % Baso % (Auto) (0-2) % Neut # (Auto) (1040-7624) /uL Lymph # (Auto) (1359-9543) /uL [place] # (Auto) (0-900) /uL Eos # (Auto) (0-450) /uL Baso # (Auto) (0-100) /uL Sodium (137-145) mmol/L Potassium (3.4-5.1) mmol/L Chloride (98-107) mmol/L Carbon Dioxide (22-32) mmol/L BUN (7-17) mg/dL Creatinine (0.52-1.04) mg/dL Estimated GFR (>60) mL/min BUN/Creatinine Ratio (6-22) Glucose (70-100) mg/dL Calcium (8.4-10.2) mg/dL Total Bilirubin (0.2-1.3) mg/dL AST (14-36) IU/L ALT (<35) IU/L Alkaline Phosphatase (38-126) U/L Total Protein (6.3-8.2) g/dL Albumin (3.5-5.0) g/dL Globulin (1.7-4.1) g/dL Albumin/Globulin Ratio (1.0-2.8) TSH (0.47-4.68) uIU/mL Urine Color Yellow Urine Appearance Clear Urine pH 6.5 (4.5-8.0) Ur Specific [place] <=1.005 (1.000-1.035) Urine Protein Negative (Negative) Urine Glucose (UA) Negative (Negative) g/dL Urine Ketones Negative (NEGATIVE) Urine Occult Blood Negative (Negative) Urine Nitrate Negative (Negative) Urine Bilirubin Negative (NEGATIVE) Urine Urobilinogen 0.2 (0.2) E.U./dL Ur Leukocyte Esterase Negative (NEGATIVE) Urine RBC None seen (0-5/HPF) Urine WBC None seen (0-5/HPF) Urine Bacteria None seen (None) Ur Culture Indicated? Cult not indicated Urine Test Negative (Negative) Salicylates (<20) mg/dL U Opiates 300ng/mL cut Negative (Negative) Ur Oxycodone Screen Negative (Negative) Urine Methadone Screen Negative (Negative) Acetaminophen (10-30) ug/mL Ur Barbiturates Screen Negative (Negative) U Tricyclic Antidepress Negative (Negative) Ur Phencyclidine Scrn Negative (Negative) Ur Amphetamines Screen Negative (Negative) U Methamphetamines Scrn Negative (Negative) Ur MDMA Scrn (Ecstasy) Negative (Negative) U Benzodiazepines Scrn Negative (Negative) Urine Cocaine Screen Negative (Negative) U Marijuana (THC) Screen Negative (Negative) Ethyl Alcohol ( - 10) mg/dL SARS-CoV-2 (PCR) (Negative) 05/04/22 05/04/22 05/04/22 Range/Units 22:44 22:44 22:44 WBC 6.4 (4.5-11.0) X10^3/uL RBC 3.96 L (4.0-5.2) X10^6/uL Hgb 13.3 (12.0-16.0) g/dL Hct 37.6 (36-46) % MCV 94.7 (80-100) fL MCH 33.4 (26-34) PG MCHC 35.3 (30-36) % RDW 13.6 (11.6-14.8) % Plt Count 259 (150-400) X10^3/uL Neut % (Auto) 46.7 L (50-75) % Lymph % (Auto) 44.9 H (25-40) % [place] % (Auto) 7.0 (3-14) % Eos % (Auto) 1.0 L (2-4) % Baso % (Auto) 0.4 (0-2) % Neut # (Auto) 3000 (4957-3151) /uL Lymph # (Auto) 2900 (1481-9780) /uL [place] # (Auto) 400 (0-900) /uL Eos # (Auto) 100 (0-450) /uL Baso # (Auto) 0 (0-100) /uL Sodium 143 (137-145) mmol/L Potassium 3.7 (3.4-5.1) mmol/L Chloride 107 (98-107) mmol/L Carbon Dioxide 25 (22-32) mmol/L BUN 10 (7-17) mg/dL Creatinine 0.68 (0.52-1.04) mg/dL Estimated GFR > 60 (>60) mL/min BUN/Creatinine Ratio 14.7 (6-22) Glucose 118 H (70-100) mg/dL Calcium 8.5 (8.4-10.2) mg/dL Total Bilirubin 0.2 (0.2-1.3) mg/dL AST 35 (14-36) IU/L ALT 18 (<35) IU/L Alkaline Phosphatase 70 (38-126) U/L Total Protein 7.8 (6.3-8.2) g/dL Albumin 4.3 (3.5-5.0) g/dL Globulin 3.5 (1.7-4.1) g/dL Albumin/Globulin Ratio 1.2 (1.0-2.8) TSH 4.65 (0.47-4.68) uIU/mL Urine Color Urine Appearance Urine pH (4.5-8.0) Ur Specific [place] (1.000-1.035) Urine Protein (Negative) Urine Glucose (UA) (Negative) g/dL Urine Ketones (NEGATIVE) Urine Occult Blood (Negative) Urine Nitrate (Negative) Urine Bilirubin (NEGATIVE) Urine Urobilinogen (0.2) E.U./dL Ur Leukocyte Esterase (NEGATIVE) Urine RBC (0-5/HPF) Urine WBC (0-5/HPF) Urine Bacteria (None) Ur Culture Indicated? Urine Test (Negative) Salicylates < 1.0 (<20) mg/dL U Opiates 300ng/mL cut (Negative) Ur Oxycodone Screen (Negative) Urine Methadone Screen (Negative) Acetaminophen < 10 (10-30) ug/mL Ur Barbiturates Screen (Negative) U Tricyclic Antidepress (Negative) Ur Phencyclidine Scrn (Negative) Ur Amphetamines Screen (Negative) U Methamphetamines Scrn (Negative) Ur MDMA Scrn (Ecstasy) (Negative) U Benzodiazepines Scrn (Negative) Urine Cocaine Screen (Negative) U Marijuana (THC) Screen (Negative) Ethyl Alcohol 293 H ( - 10) mg/dL SARS-CoV-2 (PCR) (Negative) 05/04/22 Range/Units 22:44 WBC (4.5-11.0) X10^3/uL RBC (4.0-5.2) X10^6/uL Hgb (12.0-16.0) g/dL Hct (36-46) % MCV (80-100) fL MCH (26-34) PG MCHC (30-36) % RDW (11.6-14.8) % Plt Count (150-400) X10^3/uL Neut % (Auto) (50-75) % Lymph % (Auto) (25-40) % [place] % (Auto) (3-14) % Eos % (Auto) (2-4) % Baso % (Auto) (0-2) % Neut # (Auto) (7768-5225) /uL Lymph # (Auto) (7185-5486) /uL [place] # (Auto) (0-900) /uL Eos # (Auto) (0-450) /uL Baso # (Auto) (0-100) /uL Sodium (137-145) mmol/L Potassium (3.4-5.1) mmol/L Chloride (98-107) mmol/L Carbon Dioxide (22-32) mmol/L BUN (7-17) mg/dL Creatinine (0.52-1.04) mg/dL Estimated GFR (>60) mL/min BUN/Creatinine Ratio (6-22) Glucose (70-100) mg/dL Calcium (8.4-10.2) mg/dL Total Bilirubin (0.2-1.3) mg/dL AST (14-36) IU/L ALT (<35) IU/L Alkaline Phosphatase (38-126) U/L Total Protein (6.3-8.2) g/dL Albumin (3.5-5.0) g/dL Globulin (1.7-4.1) g/dL Albumin/Globulin Ratio (1.0-2.8) TSH (0.47-4.68) uIU/mL Urine Color Urine Appearance Urine pH (4.5-8.0) Ur Specific [place] (1.000-1.035) Urine Protein (Negative) Urine Glucose (UA) (Negative) g/dL Urine Ketones (NEGATIVE) Urine Occult Blood (Negative) Urine Nitrate (Negative) Urine Bilirubin (NEGATIVE) Urine Urobilinogen (0.2) E.U./dL Ur Leukocyte Esterase (NEGATIVE) Urine RBC (0-5/HPF) Urine WBC (0-5/HPF) Urine Bacteria (None) Ur Culture Indicated? Urine Test (Negative) Salicylates (<20) mg/dL U Opiates 300ng/mL cut (Negative) Ur Oxycodone Screen (Negative) Urine Methadone Screen (Negative) Acetaminophen (10-30) ug/mL Ur Barbiturates Screen (Negative) U Tricyclic Antidepress (Negative) Ur Phencyclidine Scrn (Negative) Ur Amphetamines Screen (Negative) U Methamphetamines Scrn (Negative) Ur MDMA Scrn (Ecstasy) (Negative) U Benzodiazepines Scrn (Negative) Urine Cocaine Screen (Negative) U Marijuana (THC) Screen (Negative) Ethyl Alcohol ( - 10) mg/dL SARS-CoV-2 (PCR) Negative (Negative) ECG Data Attestation: I personally reviewed and interpreted this ECG as follows: Prior ECG tracings: not available for review Interpretation: Sinus rhythm rate of 96 MD 130 QRS 84 and QTC 449. No acute ST changes appreciated. MDM Narrative Medical decision making narrative: This is a 41-year-old female with history of alcohol abuse who likely has concurrent psychiatric issues he is describing auditory hallucinations but is not actively withdrawing. She states she drank just before coming into the emergency department and has been drinking regularly. She does not appear to have any signs of DTs on examination. Patient is seeking help with her alcohol abuse as well as psychiatric issues. She states she was told she might be bipolar by primary care physician, PA or nurse practitioner but has never been formally evaluated. Patient ETOH is 293. We will continue to monitor she will likely go into withdrawal she did receive a single dose of benzodiazepine she was feeling quite anxious. Patient was able to sleep most of the night. Patient awakened for vitals at 0518 and has some mild withdrawl symptoms. Will give initial dose of phenobarbitol at this time. Plan for [facility] UP SPECIALIST evaluation and potential placement for dual therapy if patient is still having suicidal ideation once no longer intoxicated. Patient signed out to Dr. Laird while awaiting potential placement. <Diana Laird, DO - Last Filed: 05/05/22 16:05> Lab Data Labs: Lab Results 05/04/22 05/04/22 05/04/22 Range/Units 22:18 22:18 22:18 WBC (4.5-11.0) X10^3/uL RBC (4.0-5.2) X10^6/uL Hgb (12.0-16.0) g/dL Hct (36-46) % MCV (80-100) fL MCH (26-34) PG MCHC (30-36) % RDW (11.6-14.8) % Plt Count (150-400) X10^3/uL Neut % (Auto) (50-75) % Lymph % (Auto) (25-40) % [place] % (Auto) (3-14) % Eos % (Auto) (2-4) % Baso % (Auto) (0-2) % Neut # (Auto) (4346-7603) /uL Lymph # (Auto) (0903-6412) /uL [place] # (Auto) (0-900) /uL Eos # (Auto) (0-450) /uL Baso # (Auto) (0-100) /uL Sodium (137-145) mmol/L Potassium (3.4-5.1) mmol/L Chloride (98-107) mmol/L Carbon Dioxide (22-32) mmol/L BUN (7-17) mg/dL Creatinine (0.52-1.04) mg/dL Estimated GFR (>60) mL/min BUN/Creatinine Ratio (6-22) Glucose (70-100) mg/dL Calcium (8.4-10.2) mg/dL Total Bilirubin (0.2-1.3) mg/dL AST (14-36) IU/L ALT (<35) IU/L Alkaline Phosphatase (38-126) U/L Total Protein (6.3-8.2) g/dL Albumin (3.5-5.0) g/dL Globulin (1.7-4.1) g/dL Albumin/Globulin Ratio (1.0-2.8) TSH (0.47-4.68) uIU/mL Urine Color Yellow Urine Appearance Clear Urine pH 6.5 (4.5-8.0) Ur Specific [place] <=1.005 (1.000-1.035) Urine Protein Negative (Negative) Urine Glucose (UA) Negative (Negative) g/dL Urine Ketones Negative (NEGATIVE) Urine Occult Blood Negative (Negative) Urine Nitrate Negative (Negative) Urine Bilirubin Negative (NEGATIVE) Urine Urobilinogen 0.2 (0.2) E.U./dL Ur Leukocyte Esterase Negative (NEGATIVE) Urine RBC None seen (0-5/HPF) Urine WBC None seen (0-5/HPF) Urine Bacteria None seen (None) Ur Culture Indicated? Cult not indicated Urine Test Negative (Negative) Salicylates (<20) mg/dL U Opiates 300ng/mL cut Negative (Negative) Ur Oxycodone Screen Negative (Negative) Urine Methadone Screen Negative (Negative) Acetaminophen (10-30) ug/mL Ur Barbiturates Screen Negative (Negative) U Tricyclic Antidepress Negative (Negative) Ur Phencyclidine Scrn Negative (Negative) Ur Amphetamines Screen Negative (Negative) U Methamphetamines Scrn Negative (Negative) Ur MDMA Scrn (Ecstasy) Negative (Negative) U Benzodiazepines Scrn Negative (Negative) Urine Cocaine Screen Negative (Negative) U Marijuana (THC) Screen Negative (Negative) Ethyl Alcohol ( - 10) mg/dL SARS-CoV-2 (PCR) (Negative) 05/04/22 05/04/22 05/04/22 Range/Units 22:44 22:44 22:44 WBC 6.4 (4.5-11.0) X10^3/uL RBC 3.96 L (4.0-5.2) X10^6/uL Hgb 13.3 (12.0-16.0) g/dL Hct 37.6 (36-46) % MCV 94.7 (80-100) fL MCH 33.4 (26-34) PG MCHC 35.3 (30-36) % RDW 13.6 (11.6-14.8) % Plt Count 259 (150-400) X10^3/uL Neut % (Auto) 46.7 L (50-75) % Lymph % (Auto) 44.9 H (25-40) % [place] % (Auto) 7.0 (3-14) % Eos % (Auto) 1.0 L (2-4) % Baso % (Auto) 0.4 (0-2) % Neut # (Auto) 3000 (4236-2136) /uL Lymph # (Auto) 2900 (1704-1328) /uL [place] # (Auto) 400 (0-900) /uL Eos # (Auto) 100 (0-450) /uL Baso # (Auto) 0 (0-100) /uL Sodium 143 (137-145) mmol/L Potassium 3.7 (3.4-5.1) mmol/L Chloride 107 (98-107) mmol/L Carbon Dioxide 25 (22-32) mmol/L BUN 10 (7-17) mg/dL Creatinine 0.68 (0.52-1.04) mg/dL Estimated GFR > 60 (>60) mL/min BUN/Creatinine Ratio 14.7 (6-22) Glucose 118 H (70-100) mg/dL Calcium 8.5 (8.4-10.2) mg/dL Total Bilirubin 0.2 (0.2-1.3) mg/dL AST 35 (14-36) IU/L ALT 18 (<35) IU/L Alkaline Phosphatase 70 (38-126) U/L Total Protein 7.8 (6.3-8.2) g/dL Albumin 4.3 (3.5-5.0) g/dL Globulin 3.5 (1.7-4.1) g/dL Albumin/Globulin Ratio 1.2 (1.0-2.8) TSH 4.65 (0.47-4.68) uIU/mL Urine Color Urine Appearance Urine pH (4.5-8.0) Ur Specific [place] (1.000-1.035) Urine Protein (Negative) Urine Glucose (UA) (Negative) g/dL Urine Ketones (NEGATIVE) Urine Occult Blood (Negative) Urine Nitrate (Negative) Urine Bilirubin (NEGATIVE) Urine Urobilinogen (0.2) E.U./dL Ur Leukocyte Esterase (NEGATIVE) Urine RBC (0-5/HPF) Urine WBC (0-5/HPF) Urine Bacteria (None) Ur Culture Indicated? Urine Test (Negative) Salicylates < 1.0 (<20) mg/dL U Opiates 300ng/mL cut (Negative) Ur Oxycodone Screen (Negative) Urine Methadone Screen (Negative) Acetaminophen < 10 (10-30) ug/mL Ur Barbiturates Screen (Negative) U Tricyclic Antidepress (Negative) Ur Phencyclidine Scrn (Negative) Ur Amphetamines Screen (Negative) U Methamphetamines Scrn (Negative) Ur MDMA Scrn (Ecstasy) (Negative) U Benzodiazepines Scrn (Negative) Urine Cocaine Screen (Negative) U Marijuana (THC) Screen (Negative) Ethyl Alcohol 293 H ( - 10) mg/dL SARS-CoV-2 (PCR) (Negative) 05/04/22 Range/Units 22:44 WBC (4.5-11.0) X10^3/uL RBC (4.0-5.2) X10^6/uL Hgb (12.0-16.0) g/dL Hct (36-46) % MCV (80-100) fL MCH (26-34) PG MCHC (30-36) % RDW (11.6-14.8) % Plt Count (150-400) X10^3/uL Neut % (Auto) (50-75) % Lymph % (Auto) (25-40) % [place] % (Auto) (3-14) % Eos % (Auto) (2-4) % Baso % (Auto) (0-2) % Neut # (Auto) (3840-2080) /uL Lymph # (Auto) (0161-5241) /uL [place] # (Auto) (0-900) /uL Eos # (Auto) (0-450) /uL Baso # (Auto) (0-100) /uL Sodium (137-145) mmol/L Potassium (3.4-5.1) mmol/L Chloride (98-107) mmol/L Carbon Dioxide (22-32) mmol/L BUN (7-17) mg/dL Creatinine (0.52-1.04) mg/dL Estimated GFR (>60) mL/min BUN/Creatinine Ratio (6-22) Glucose (70-100) mg/dL Calcium (8.4-10.2) mg/dL Total Bilirubin (0.2-1.3) mg/dL AST (14-36) IU/L ALT (<35) IU/L Alkaline Phosphatase (38-126) U/L Total Protein (6.3-8.2) g/dL Albumin (3.5-5.0) g/dL Globulin (1.7-4.1) g/dL Albumin/Globulin Ratio (1.0-2.8) TSH (0.47-4.68) uIU/mL Urine Color Urine Appearance Urine pH (4.5-8.0) Ur Specific [place] (1.000-1.035) Urine Protein (Negative) Urine Glucose (UA) (Negative) g/dL Urine Ketones (NEGATIVE) Urine Occult Blood (Negative) Urine Nitrate (Negative) Urine Bilirubin (NEGATIVE) Urine Urobilinogen (0.2) E.U./dL Ur Leukocyte Esterase (NEGATIVE) Urine RBC (0-5/HPF) Urine WBC (0-5/HPF) Urine Bacteria (None) Ur Culture Indicated? Urine Test (Negative) Salicylates (<20) mg/dL U Opiates 300ng/mL cut (Negative) Ur Oxycodone Screen (Negative) Urine Methadone Screen (Negative) Acetaminophen (10-30) ug/mL Ur Barbiturates Screen (Negative) U Tricyclic Antidepress (Negative) Ur Phencyclidine Scrn (Negative) Ur Amphetamines Screen (Negative) U Methamphetamines Scrn (Negative) Ur MDMA Scrn (Ecstasy) (Negative) U Benzodiazepines Scrn (Negative) Urine Cocaine Screen (Negative) U Marijuana (THC) Screen (Negative) Ethyl Alcohol ( - 10) mg/dL SARS-CoV-2 (PCR) Negative (Negative) MDM Narrative Medical decision making narrative: This is a 41-year-old female with history of alcohol abuse who likely has concurrent psychiatric issues he is describing auditory hallucinations but is not actively withdrawing. She states she drank just before coming into the emergency department and has been drinking regularly. She does not appear to have any signs of DTs on examination. Patient is seeking help with her alcohol abuse as well as psychiatric issues. She states she was told she might be bipolar by primary care physician, PA or nurse practitioner but has never been formally evaluated. Patient ETOH is 293. We will continue to monitor she will likely go into withdrawal she did receive a single dose of benzodiazepine she was feeling quite anxious. Patient was able to sleep most of the night. Patient awakened for vitals at 0518 and has some mild withdrawl symptoms. Will give initial dose of phenobarbitol at this time. Plan for [facility] evaluation and potential placement for dual therapy if patient is still having suicidal ideation once no longer intoxicated. Patient signed out to Dr. Laird while awaiting potential placement. Patient seen evaluated by myself. Worse over no longer suicidal. She spoke with social work who attempted to place her in a dual placement facility for depression suicidal ideation and substance abuse. Unfortunately no one was able to take her today. Patient felt like she was able to go home with outpatient resources. We discussed how it is very important to treat both her mental health and her substance abuse issues because they are closely related. She understands this and agrees with this. She is given resources for both of these to try an outpatient. She is encouraged to return to the emergency department if she should feel that she is in danger of harming herself or anyone else. Discharge Plan Departure Patient Disposition: Home Clinical Impression: Alcohol abuse, Depression Instructions: DI for Alcohol Use Disorder, DI for Schizophrenia Activity Restrictions/Additional Instructions: *You have been diagnosed with *What to do: Please see resources for substance use and mental health. If you are feeling suicidal or having suicidal thoughts: Call: Suicide Hotline: Visit: www.[employer]org Text: 995065 *Continue to take medications as directed *Follow up with your primary care provider in 2-3 days or call [phone] *Return to ER if you should have thoughts of self harm, worsening voices, or any new, worsening or concerning symptoms Prescriptions: No Action hydroxyzine HCl 25 mg tablet 25 mg PO DIRECTED Label Comments: TAKE 2 TABLETS BY MOUTH TWICE DAILY NEEDED FOR ANXIETY Rx Instructions: Daily PRN valproic acid 250 mg capsule 250 mg PO BID Label Comments: TAKE 1 CAPSULE BY MOUTH TWICE DAILY Visit Report Forms: Patient Portal/API
[2022-05-04 22:48] LABS: Appearance Urine UA CLEAR; Bilirubin Urine UA NEGATIVE (NEGATIVE); Color Urine UA YELLOW; Glucose Urine UA NEGATIVE (Negative); Ketones Urine UA NEGATIVE (NEGATIVE); Leukocyte Esterase Urine UA NEGATIVE (NEGATIVE); Nitrite Urine UA NEGATIVE (Negative); Occult Blood Urine UA NEGATIVE (Negative); Protein Urine UA NEGATIVE (Negative); Specific Gravity Urine UA <=1.005 (1.000-1.035); Urobilinogen Urine UA 0.2 E.U./dL (0.2)
[2022-05-04 22:49] LABS: pH Urine UA 6.5 (4.5-8.0)
[2022-05-04 22:50] LABS: Pregnancy Test Urine Negative (Negative)
[2022-05-04 22:57] LABS: UR Morphine/Opiate cutoff 300 Negative (Negative); Ur Creatinine 20 (Normal); Ur Specific Gravity <1.005 (Normal); Urine Amphetamines Negative (Negative); Urine Barbiturates Negative (Negative); Urine Benzodiazepines Negative (Negative); Urine Cocaine Negative (Negative); Urine MDMA Negative (Negative); Urine Methadone Negative (Negative); Urine Methamphetamines Negative (Negative); Urine Oxycodone Negative (Negative); Urine Phencyclidine Negative (Negative); Urine Tetrahydrocannabinol Negative (Negative); Urine Tricyclic Antidepressant Negative (Negative); Urine pH 6.5 (Normal)
[2022-05-04 23:02] LABS: Bacteria Urine None Seen; Culture Indicated Urine Cult Not Indicated; RBC Urine None Seen (0-5/HPF); WBC Urine None Seen (0-5/HPF)
[2022-05-04 23:02] LABS: Add Manual Diff / Slide Review NO; Basophils Absolute Auto 0 /uL (0-100); Basophils Percent Auto 0.4 % (0-2); Eosinophils Absolute Auto 100 /uL (0-450); Hematocrit 37.6 % (36-46); Hemoglobin 13.3 g/dL (12.0-16.0); Lymphocytes Absolute Auto 2900 /uL (1100-4500); Lymphocytes Percent Auto 44.9 % (25-40); Mean Corpuscular HGB Conc 35.3 % (30-36); Mean Corpuscular Hemoglobin 33.4 PG (26-34); Mean Corpuscular Volume 94.7 fL (80-100); Monocytes Absolute Auto 400 /uL (0-900); Neutrophils Absolute Auto 3000 /uL (1500-7000); Neutrophils Percent Auto 46.7 % (50-75); Platelet Count 259 X10^3/uL (150-400); Red Blood Cell Count 3.96 X10^6/uL (4.0-5.2); Red Cell Distribution Width 13.6 % (11.6-14.8); White Blood Cell Count 6.4 X10^3/uL (4.5-11.0)
[2022-05-04 23:06] LABS: Acetaminophen < 10 ug/mL (10-30); Alanine Aminotransferase 18 IU/L (<35); Albumin 4.3 g/dL (3.5-5.0); Albumin Globulin Ratio 1.2 (1.0-2.8); Alkaline Phosphatase 70 U/L (38-126); Aspartate Aminotransferase 35 IU/L (14-36); BUN Creatinine Ratio 14.7 (6-22); Bilirubin Total 0.2 mg/dL (0.2-1.3); Blood Urea Nitrogen 10 mg/dL (7-17); Calcium 8.5 mg/dL (8.4-10.2); Carbon Dioxide 25 mmol/L (22-32); Chloride 107 mmol/L (98-107); Estimated Glomerular Filt Rate > 60 mL/min (>60); Ethanol (ETOH) 293 mg/dL; Globulin 3.5 g/dL (1.7-4.1); Glucose 118 mg/dL (70-100); HEMOLYSIS < 15 (0-50); Potassium 3.7 mmol/L (3.4-5.1); Salicylate < 1.0 mg/dL (<20); Sodium 143 mmol/L (137-145); Total Protein 7.8 g/dL (6.3-8.2)
[2022-05-04 23:10] LABS: COVID19 -Nasal RAPID Negative (Negative)
--- NOTE | 2022-05-04 23:16 | PC.NURSE ---
Pt belongings removed from room and pt changed at this time with media job titles, Dee, as witness and clothes placed in pt labeled belongings bag. Pt pursct has her two medications (verified in chart), glasses, 2 packs of cigarettes, perfume, a clerical office worker, a make up bag and a coin purse. All belongings placed in pt labeled belongings bag and locked in nursing station cabinet.
[2022-05-04] MEDS: THIAMINE 100 MG in SODIUM CHLORIDE 0.9% 100 ML 404 MG IV (23:23)
[2022-05-04] MEDS: LORazepam 0.5 MG TABLET 1 MG PO (23:24)
--- NOTE | 2022-05-04 23:40 | PC.NURSE ---
Pt admittedly intoxicated and is labile with emotions, sometimes crying then quick to laughter and joking with staff. Pt good with following directions and is cooperative with staff, although occasionally making mildly inappropriate comments towards certain staff members. Pt very thankful for staff and the help she is receiving.
[2022-05-04] MEDS: NICOTINE 7 MG PATCH TOP (23:44)
[2022-05-04] MEDS: FOLIC ACID 1 MG TABLET PO (23:44)
[2022-05-04 23:49] LABS: TSH w/ Reflex to FT4 4.65 uIU/mL (0.47-4.68)
[2022-05-05] VITALS (16 sets, daily range): BP systolic 122–139; BP diastolic 76–94; PULSE 75–99; RESP 15–24; O2SAT 96–99
[2022-05-05] MEDS: PHENobarbital 65 MG/ML VIAL 130 MG IV (05:22)
[2022-05-05] MEDS: LORazepam 0.5 MG TABLET 1 MG PO (10:18)
[2022-05-05] MEDS: VALPROIC ACID 250 MG/5 ML UDC PO (10:18)
--- NOTE | 2022-05-05 10:19 | PC.NURSE ---
boyfriend in room, patient in and out of sleep
--- NOTE | 2022-05-05 11:57 | PC.NURSE ---
patient asleep at this time. removed breakfast tray, that patient ate 100% of, and left lunch tray in room. patients boyfriend remains in room
--- NOTE | 2022-05-05 12:19 | PC.NURSE ---
CONFIGURATION MANAGEMENT ARCHITECT at bedside
--- NOTE | 2022-05-05 13:13 | CM.SWNOTE ---
SENIOR POWER SCHEDULER Assessment SENIOR POWER SCHEDULER - Musical String Maker Assessment SENIOR POWER SCHEDULER/Musical String Maker Assessment Time Spent with Patient Start date 05/05/22 Visit Start Time 12:10 End date 05/05/22 Visit End Time 12:30 Total time Care Management spent on 20 minutes patient visit-in minutes Mental Health Screening Include Onset, Duration, Intensity Presenting Problem Patient presents to ED due to concern for SI and ETOH use. Patient endorses SI with plans upon presentation to ED. Patient denies current SI during assessment but endorses increasing SI with plans. Patient endorses that symptoms have been worsening and it has been difficult to manage day to day and make decisions . Patient endorses she is seeking medication management and crisis management and seeking inpatient. Precipitating Event(s) Patient endorses she has been drinking excessively, patient endorses she notices changes in her behavior linked to hormonal changes. Patient endorses her PCP recently changed her medication two weeks ago. Patient endorses she presented to the ED recently (January 2022) for similar symptoms and medication helped at first, patient was referred to [facility] and Triage but patient left because she was uncomfortable with the environment. Patient Strengths Patient is seeking help, patient has support. Current Behavioral Health Provider(s) None reported Include Facility, Provider, Ph. # Psych. Hx Mental Health and Chemical Patient endorses hx of SI, SA, Dependency manic behavior, patient endorses she thinks she may have bipolar but denies formal dx. Patient has rx for Hydroxyzine HCl 25 mg and Valproic Acid 250 mg BID. Patient endorses hx of Adderall use but states she stopped in January 2022. 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 Patient endorses daily and all day ETOH use. Patient endorses she drinks 2-3 white claws in the morning, a few shots of fireball before work and then a shot of fireball every hour. Patient endorses drinking vodka in the evening. Patient's last drink was approximately 2200 on 05/04/22. At 22:44 on 05/04/22, patient's BAL toxicology was 293. Patient was negative for all other substances. Family Hx of Behavioral Abuse Patient endorses her biological father who she does not have contact with is in [place] and has hx of Mental illness. Patient endorses her mother and brother both have severe depression. Psychiatric Hospitalizations (date(s)/ No hx location) Psychosocial information & Support Patient is 41 y/o female who Systems resides in [place]. Patient presents with boyfriend. 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 Legal Concerns Legal Matters - Outstanding Issues Patient endorses hx of care home when she was a teenager for meth use. Patient endorses she went to care home, detox and did IOP after being charged. Mental Status Orientation (Person/Place/Time) A/Ox4 Stated Mood tired Affect (Congruent with Mood?) euthymic, full range, congruent with mood. Thought Content - Specify/Describe Patient endorses visual and Obsessions, Delusions, Hallucinations auditory hallucinations at base line. Patient endorses that they come and go. Patient endorses she has been hearing voices since she was a kid. Patient endorses some voices are mean and present with different colors. Patient endorses that she does not hear voices now and she has learned to tune them out with music. Patient endorses that she sees ghosts sometimes and endorses she feels unsafe when she sees them. Patient denies seeing ghosts now but states that she last saw them last week. Patient endorses she screams to make them go away. Thought Processes (Txddqxe-Vkyprbwe-Hbce coherent Hdhiunnr-Mdhoudih-Dieclizykg- Tjzomhyhfzlsnn-Rbdreqi-Aahreryufudn- Thought Blocking) Speech (Aklfaw-Hzzq-Ljoynnk-Rapid-Soft- normal/slow Loud-Pressured) Motor (Cmszrc-Qinovuaik-Astc-Other) normal Insight (Tlza-Emrj-Emze/Limited) fair/limited Judgement (Qhhp-Gqqb-Hyzp/Limited) fair/limited Impulse Control (Adequate-Impaired) adequate Memory (Ywiwyaaym-Arxrjw-Yigrgp, intact, not formally assessed Impaired-Intact) Concentration (Intact-Impaired) intact Attention (Intact-Impaired) intact Behavior (Appropriate-Inappropriate) appropriate Additional Comment Patient presents as calm, cooperative and communicative. Risk Assessment Suicidal Ideation (Plan) Yes Homicidal Ideation (Plan) No Comment Patient denies HI. Patient endorses SI with plans upon presentation to ED but denies current SI. Patient endorses hx of attempts that didn't work. Patient endorses hx of overdosing on pills, drowning self and hanging self . Patient endorses that those are the plans she thinks of when engaging in thoughts of SI. Patient endorses SI regularly, throughout her life but SI has increased recently . Patient endorses she presented to the ED for assistance and safety. Intervention Intervention SENIOR POWER SCHEDULER enters room to meet with patient. Present in room is patient's boyfriend, patient provides consent for him to be present during assessment. Patient endorses that SI and excessive drinking are getting worse. Patient endorses that she has been attempting to address SI with ETOH and self medicate but it hasn't been working. Patient endorses difficulty making decisions and hx of quitting her job and coming back to work several times. Patient endorses daily ETOH use all day. Patient endorses ongoing and increasing SI. Patient endorses her only withdrawal symptom is exhaustion. Patient endorses hx of anxiety, nausea, vomiting and shakiness when withdrawing. Patient endorses she is seeking help and wants to treat her MH and ETOH use. Patient endorses that her PCP who is an nurse practitioner changed her medication two weeks ago. Patient endorses that the initial medication she was prescribed a few months ago started to address her MH but no longer works. SENIOR POWER SCHEDULER discusses dual dx inpatient hospitalization, and patient endorses agreement and understanding. It is the opinion of this SENIOR POWER SCHEDULER that patient is appropriate for and will benefit from voluntary inpatient dual dx hospitalization for crisis stabilization, safety and medication management. SENIOR POWER SCHEDULER reviews the above with ED provider Dr. Laird who indicates agreement and understanding. Plan RA Plan SENIOR POWER SCHEDULER to seek voluntary dual dx bed for patient upon medical clearance. ALFREDO PierreSW
--- NOTE | 2022-05-05 15:18 | CM.SWNOTE ---
Addendum entered by Sobeida Mcdowell 05/05/22 15:38: Patient endorses interest in f/u with [facility] and endorses that she will plan to call them tomorrow. ALIZA Pierre Original Note: DUST MOP MAKER Note DUST MOP MAKER conducts dual dx voluntary BH bed search. DUST MOP MAKER calls [facility] intake, it is reported that they do not have beds today appropriate for patient, but may have beds tomorrow. DUST MOP MAKER faxes clinicals for review. DUST MOP MAKER calls [facility], it is reported that they are full today. DUST MOP MAKER calls [facility] intake, it is reported that they are full today but may have beds tomorrow. DUST MOP MAKER calls [facility] intake, it is reported that they have no beds but may have beds tomorrow. DUST MOP MAKER reviews this with patient who reports that she cannot wait until tomorrow and would prefer to go home and seek ROHIT/MH support via outpatient. DUST MOP MAKER informs ED provider Dr. Laird, DUST MOP MAKER and ED provider enter room to meet with patient. Patient endorses it would be more detrimental to go to inpatient right now and patient prefers outpatient. Patient endorses that she lives with her mom and her BF is a constant support and they are always together. Patient endorses safety and denies SI. Patient endorses her desire to go home. DUST MOP MAKER to call patient's boyfriend who is not currently present in ED. DUST MOP MAKER to provide patient with crisis contacts, list of MH providers that accept her insurance, IOP information via [facility] and list of ROHIT tx providers and detox facilities. DUST MOP MAKER calls patient's boyfriend who agrees to ensure patient safety and monitor patient as he sees her every day. DUST MOP MAKER reviews the above with ED provider Dr. Laird who indicates agreement and understanding. Plan: patient to d/c to home with boyfriend, patient to f/u with ROHIT and MH resources provided. ALIZA Pierre
== END 2022-05-05 15:58 | disposition home or self-care (01) ==
PROVIDERS: Emergency Medicine; Emergency Provider Emergency Medicine
DX: F10.129 Alcohol abuse with intoxication, unspecified (principal); Y90.8 Blood alcohol level of 240 mg/100 ml or more; F32.A Depression, unspecified; Z20.822 Contact with and (suspected) exposure to COVID-19
CPT/HCPCS: 36415; 80053; 80305; 80320; 80329; 81001; 81025; 84443; 85025; 87635; 93005; 93010; 96361; 96374; 99285; C9803; G0480; J2560

== ENCOUNTER 2022-08-29 07:44 | Emergency (ER) | payer OTHER, MEDICAID, SELFPAY ==
--- NOTE | 2022-08-29 07:57 | DI.RAD.S_ITS ---
PROCEDURE: XR CHEST 2V INDICATIONS: cough eval for PNA TECHNIQUE: 2 views of the chest were acquired. COMPARISON: None. FINDINGS: Surgical changes and devices: None. Lungs and pleura: Lungs are clear. No pleural effusions or pneumothorax. Mediastinum: Mediastinal contours are normal. Heart size is normal. Bones and chest wall: No suspicious bony abnormalities. Soft tissues appear unremarkable. IMPRESSION: No acute cardiopulmonary pathology. Dictated by: Go Trotter M.D. on 08/29/2022 at 8:34 Approved by: Go Trotter M.D. on 08/29/2022 at 8:34
[2022-08-29 08:08] VITALS: BP 139/62; PULSE 108; RESP 24; TEMP 37.1; O2SAT 98; BMI 25.1
--- NOTE | 2022-08-29 08:09 | ED.GENADULT ---
HPI - General Adult General Chief complaint: Upper Respiratory Symptoms Stated complaint: cough for t-21 not getting better head pressure Time Seen by Provider: 08/29/22 07:51 Source: patient Mode of arrival: Ambulatory Limitations: no limitations History of Present Illness HPI narrative: 42-year-old female who is here for evaluation of 3 weeks of cough, sinus congestion, headache, ear fullness and subjective fevers. She states she has been trying pjej-aug-qyaytvq medicines such as Sudafed and antihistamines and other decongestants without any improvement of her symptoms. It is a nonproductive cough. Related Data Home Medications Medication Instructions Recorded Confirmed hydroxyzine HCl 25 mg tablet 25 mg PO DIRECTED 05/04/22 05/04/22 valproic acid 250 mg capsule 250 mg PO BID 05/04/22 05/04/22 Previous Rx's Medication Instructions Recorded amoxicillin 875 mg-potassium 1 tab PO BID 7 days #14 tabs 08/29/22 clavulanate 125 mg tablet benzonatate 100 mg capsule 100 mg PO TID PRN cough #20 caps 08/29/22 Allergies Allergy/AdvReac Type Severity Reaction Status Date / Time No Known Drug Allergies Allergy Verified 02/01/22 09:24 Review of Systems Constitutional Constitutional: Reports system reviewed and no additional complaints, except as documented ENT Ears, Nose, Mouth, and Throat: Reports system reviewed and no additional complaints, except as documented Respiratory Respiratory: Reports system reviewed and no additional complaints, except as documented Integumentary/Breasts Skin/Breast: Reports system reviewed and no additional complaints, except as documented Hematologic/Lymphatic On Anticoagulants: No Patient History Medical History Alcohol abuse Social History Smoking Status: Current every day smoker Smoking Status: Current every day smoker alcohol intake frequency: 3 or more drinks per day Alcohol type: hard liquor Substance Use Type: marijuana, crack/cocaine, sedatives and prescription drug Exam Initial Vital Signs Initial Vital Signs: Vital Signs Temperature 98.8 F 08/29/22 08:08 Pulse Rate 108 H 08/29/22 08:08 Respiratory Rate 24 08/29/22 08:08 Blood Pressure 139/62 08/29/22 08:08 Pulse Oximetry 98 08/29/22 08:08 Oxygen Delivery Method 08/29/22 08:08 Const General: cooperative, comfortable and No ill appearing HENMT Head: normal to inspection and normocephalic Face and sinus: normal facial exam Mouth: oral mucosae normal Resp Effort & Inspection: normal respiratory effort Auscultation: clear to auscultation bilaterally Other: Does have a frequent cough Cardio Rate: regular rate Skin General: no rashes or lesions noted Neuro General: patient alert, patient awake and moves all extremities Extrem General: normal to inspection and capillary refill normal Psych Appearance: grossly normal and well kempt Course Orders Ordered: ED Orders 08/29/22 07:57 XR chest 2V Stat Vital Signs Vital signs: Vital Signs - 8 hr 08/29/22 08:08 Temperature 98.8 F Pulse Rate 108 H Respiratory Rate 24 Blood Pressure 139/62 Pulse Oximetry 98 Oxygen Delivery Method Room Air Medical Decision Making Imaging Data Chest x-ray: Radiologist's Impression: [address] [address] XRay Report Signed Patient: Ginger Ordaz MR#: [id number] : 1980 Acct:[id number] Age/Sex: 42 / F Date of Service: 08/29/22 Loc: ED Accession Number: [id number] ?? Procedure: XR chest 2V Ordering Provider: José Miguel Mehta D.O. PROCEDURE:? XR CHEST 2V ? INDICATIONS:? cough eval for PNA ? TECHNIQUE:? 2 views of the chest were acquired.? ? COMPARISON:? None. ? FINDINGS:? ? Surgical changes and devices:? None.? ? Lungs and pleura:? Lungs are clear.? No pleural effusions or pneumothorax.? ? Mediastinum:? Mediastinal contours are normal.? Heart size is normal.? ? Bones and chest wall:? No suspicious bony abnormalities.? Soft tissues appear unremarkable.? ? IMPRESSION:? No acute cardiopulmonary pathology. ? ? Dictated by: Go Trotter M.D. on 08/29/2022 at 8:34 ? ? Approved by: Go Trotter M.D. on 08/29/2022 at 8:34? MDM Narrative Medical decision making narrative: Afebrile. Lungs are clear. Chest x-ray is unremarkable but the patient obviously has signs and symptoms of sinusitis. She is had the symptoms for the past 3 weeks. She has been on yvps-qyi-hfymlho medications try to help the symptoms without any improvement. She does have tenderness over her sinuses. Given her presentation we will start her on antibiotics. These were sent to the pharmacy of her choice. She was given return precautions. She expressed understanding and agreement. Discharge Plan Departure Patient Disposition: Home Clinical Impression: Upper respiratory infection, Sinusitis, Cough Instructions: DI for Sinusitis Activity Restrictions/Additional Instructions: Take the medications as directed. They were sent to [facility] Return to the emergency department for any new symptoms. Prescriptions: New benzonatate 100 mg capsule 100 mg PO TID PRN (Reason: cough) Qty: 20 0RF amoxicillin-pot clavulanate 875-125 mg tablet 1 tab PO BID 7 Days Qty: 14 0RF No Action hydroxyzine HCl 25 mg tablet 25 mg PO DIRECTED Label Comments: TAKE 2 TABLETS BY MOUTH TWICE DAILY NEEDED FOR ANXIETY Rx Instructions: Daily PRN valproic acid 250 mg capsule 250 mg PO BID Label Comments: TAKE 1 CAPSULE BY MOUTH TWICE DAILY Referrals: Alessandra Cruz PA-C [Primary Care Provider] -
[2022-08-29 08:55] VITALS: BP 122/78; PULSE 78; RESP 15; O2SAT 98
== END 2022-08-29 08:50 | disposition home or self-care (01) ==
PROVIDERS: Emergency Provider Emergency Medicine; PCP Physician Assistant
DX: J06.9 Acute upper respiratory infection, unspecified (principal); J32.9 Chronic sinusitis, unspecified
CPT/HCPCS: 71046; 99283